=== PATIENT | male | born 1985 | race African-American/Black ===

== ENCOUNTER → 2016-08-22 | Outpatient (CLI) | payer BC | END | disposition home or self-care (01) | LOC: GMAM 12:31 | PROVIDERS: ATTEND Family Medicine | DX: R53.82 Chronic fatigue, unspecified (principal) ==

== ENCOUNTER → 2018-06-15 | Outpatient (CLI) | payer BC | LOC: GMAM 10:49 | PROVIDERS: ATTEND Family Medicine | DX: R53.82 Chronic fatigue, unspecified (principal); E55.9 Vitamin D deficiency, unspecified; E29.9 Testicular dysfunction, unspecified ==

== ENCOUNTER → 2018-07-16 | Outpatient (CLI) | payer BC | LOC: GMAM 12:38 | PROVIDERS: ATTEND Family Medicine | DX: R77.8 Other specified abnormalities of plasma proteins (principal) ==

== ENCOUNTER → 2018-07-26 | Outpatient (CLI) | payer BC | LOC: SL 21:15 | PROVIDERS: ATTEND Family Medicine | DX: G47.10 Hypersomnia, unspecified (principal); R06.83 Snoring; E66.01 Morbid (severe) obesity due to excess calories ==

== ENCOUNTER 2018-08-01 09:46 | Emergency (ER) | payer BC ==
[2018-08-01 09:55] VITALS: BP 153/93; TEMP 98; O2SAT 99
[2018-08-01] MEDS ORDERED: predniSONE 20 MG TAB PO ONE (10:01)
[2018-08-01] MEDS ORDERED: AZITHROMYCIN 250 MG TAB PO ONE (10:01)
--- NOTE | 2018-08-01 10:04 | ED.PDOC ---
History of Present Illness - General Chief Complaint: ENT Problem Time Seen by Provider: 08/01/18 09:57 Source: patient Exam Limitations: no limitations - History of Present Illness Initial Comments: the patient is a 33-year-old Iranian male presenting to emergency room secondary to a productive cough and intermittent fevers for the last week. No real shortness of breath. He has had some malaise. Minimal runny nose. Minimal sore throat. He is not febrile here and he is not hypoxic. Very mild rhonchi but no rales. Normal air movement. No history of any asthma or diabetes. Timing/Duration: 1 week Severity: moderate Improving Factors: nothing Associated Symptoms: denies symptoms, cough Allergies/Adverse Reactions: Allergies NO KNOWN ALLERGY Allergy (Unverified 08/01/12 21:24) Home Medications: Ambulatory Orders Atorvastatin Calcium [Lipitor] 10 mg PO BEDTIME 08/01/18 Azithromycin 500 mg PO DAILY #5 tab 08/01/18 Cholecalciferol [Vitamin D] 1,000 unit PO DAILY 08/01/18 Lisinopril [Prinivil] 10 mg PO DAILY 08/01/18 Multiple Vitamins W/ Minerals [Multi For Him] 1 tab PO DAILY 08/01/18 predniSONE [Prednisone] 20 mg PO DAILY #3 tab 08/01/18 Review of Systems - Review of Systems Constitutional: States: fever, malaise EENTM: States: throat pain - mild Respiratory: States: cough Cardiology: States: no symptoms reported Gastrointestinal/Abdominal: States: no symptoms reported Genitourinary: States: no symptoms reported Musculoskeletal: States: no symptoms reported Skin: States: no symptoms reported Neurological: States: no symptoms reported Endocrine: States: no symptoms reported All other Systems: No Change from Baseline Past Medical History (General) - Patient Medical History Hx Stroke: No Hx Cardiac Disorders: Yes - high cholesterol Hx Congestive Heart Failure: No Hx Hypertension: Yes Hx Diabetes: No Surgical History: no surgical history - Vaccination History Hx Influenza Vaccination: No - 2018 Hx Pneumococcal Vaccination: No - Social History Hx Tobacco Use: No Hx Alcohol Use: No Family Medical History - Family History Father Family History: No Known Living Status: Still Living Physical Exam - Physical Exam General Appearance: Alert, Comfortable, No apparent distress Eye Exam: bilateral normal Ears, Nose, Throat: hearing grossly normal, normal ENT inspection, normal pharynx Neck: full range of motion, supple Respiratory: no respiratory distress, no accessory muscle use, rhonchi - mild Cardiovascular/Chest: normal peripheral pulses, regular rate, rhythm, no edema Peripheral Pulses: radial,right: 2+, radial,left: 2+ Gastrointestinal/Abdominal: non tender, soft, other - orbidly obese Rectal Exam: deferred Back Exam: no CVA tenderness, no vertebral tenderness Extremity: normal range of motion, non-tender, normal inspection, no pedal edema, no calf tenderness, normal capillary refill Neurologic: carrot buncher II-XII nml as tested, alert, normal mood/affect, oriented x 3 Skin Exam: normal color Comments: Vital Signs - 24 hr 08/01/18 09:50 Temperature 98.0 F Pulse Rate [ 100 H Left Radial] Respiratory 22 Rate Blood Pressure 153/93 [Left Arm] O2 Sat by Pulse 99 Oximetry Progress - Progress Progress: 08/01/18 10:04 the patient's 33-year-old -Iranian male presenting to the emergency room with a week's worth of history of a productive cough and intermittent fevers. He appears to have a mild acute bronchitis. While this is possibly viral, he will be covered for potential bacterial pathologies with azithromycin for the next 5 days and some prednisone to help reduce inflammation for the next 3 days. 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 He needs to keep himself well hydrated. ER warnings were given. Keep follow-up with routine primary care doctor. Departure - Departure Clinical Impression: Acute bronchitis Qualifiers: Bronchitis organism: unspecified organism Qualified Code(s): J20.9 - Acute bronchitis, unspecified Disposition: Discharge to Home or Self Care Condition: Fair Departure Forms: ED Discharge - Pt. Copy, Patient Portal Self Enrollment Instructions: Acute Bronchitis, Adult (DC) Diet: regular diet Activity: increase activity as tolerated Referrals: Elias Hopper MD [Primary Care Provider] - 1-2 Weeks Prescriptions: Azithromycin 500 mg PO DAILY #5 tab predniSONE [Prednisone] 20 mg PO DAILY #3 tab Home Medications: Ambulatory Orders Atorvastatin Calcium [Lipitor] 10 mg PO BEDTIME 08/01/18 Azithromycin 500 mg PO DAILY #5 tab 08/01/18 Cholecalciferol [Vitamin D] 1,000 unit PO DAILY 08/01/18 Lisinopril [Prinivil] 10 mg PO DAILY 08/01/18 Multiple Vitamins W/ Minerals [Multi For Him] 1 tab PO DAILY 08/01/18 predniSONE [Prednisone] 20 mg PO DAILY #3 tab 08/01/18 Additional Instructions: the patient's 33-year-old male presenting to the emergency room with a week's worth of history of a productive cough and intermittent fevers. He appears to have a mild acute bronchitis. While this is possibly viral, he will be covered for potential bacterial pathologies with azithromycin for the next 5 days and some prednisone to help reduce inflammation for the next 3 days. 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 He needs to keep himself well hydrated. ER warnings were given. Keep follow-up with routine [facility] doctor.
== END 2018-08-01 10:10 | disposition home or self-care (01) ==
LOC: ER 09:46
DX: J20.9 Acute bronchitis, unspecified (principal); I10 Essential (primary) hypertension; E78.00 Pure hypercholesterolemia, unspecified
CPT/HCPCS: J7512; Q0144

== ENCOUNTER 2019-09-02 14:05 | Emergency (ER) | payer BC ==
[2019-09-02] MEDS ORDERED: diazePAM 2 MG TAB PO ONE (14:28)
--- NOTE | 2019-09-02 15:52 | ED.PDOC ---
History of Present Illness - General Chief Complaint: Blood Pressure Problem Stated Complaint: elevated BP,low temp Time Seen by Provider: 09/02/19 14:07 Source: patient Exam Limitations: no limitations - History of Present Illness Initial Comments: The patient is a 34-year-old -Lao male presents emergency room secondary to high blood pressure and increased heart rate today. He reports that his blood pressures and his heart rates have been better controlled in the last several weeks since restarting his blood pressure regimen. Additionally he is dieting and exercising trying to lose weight. He is also getting set up with his CPAP for his obstructive sleep apnea. The patient is not having any chest pain. He is very anxious however over the blood pressure and the heart rate. Heart rates are in the 1 teens. This has been a problem in the past. No syncope or near syncope. He did see a records management manager several weeks ago in [facility]. He was apparently given a fairly good report. Timing/Duration: 4-6 hours Severity: mild Improving Factors: nothing Worsening Factors: nothing Associated Symptoms: denies symptoms Allergies/Adverse Reactions: Allergies NO KNOWN ALLERGY Allergy (Verified 08/08/19 07:43) Home Medications: Ambulatory Orders Atorvastatin Calcium [Lipitor] 10 mg PO BEDTIME 08/01/18 Azithromycin 500 mg PO DAILY #5 tab 08/01/18 Cholecalciferol [Vitamin D] 1,000 unit PO DAILY 08/01/18 Lisinopril [Prinivil] 10 mg PO DAILY 08/01/18 Multiple Vitamins W/ Minerals [Multi For Him] 1 tab PO DAILY 08/01/18 predniSONE [Prednisone] 20 mg PO DAILY #3 tab 08/01/18 Amlodipine Besylate 10 mg PO DAILY #30 tab 08/05/19 Metoprolol Tartrate 50 mg PO BID #60 tab 08/05/19 Review of Systems - Review of Systems Constitutional: States: no symptoms reported EENTM: States: no symptoms reported Respiratory: States: no symptoms reported Cardiology: States: palpitations Gastrointestinal/Abdominal: States: no symptoms reported Genitourinary: States: no symptoms reported Musculoskeletal: States: no symptoms reported Skin: States: no symptoms reported Neurological: States: anxiety Endocrine: States: no symptoms reported All other Systems: No Change from Baseline Past Medical History (General) - Patient Medical History Hx Stroke: No Hx of COPD: No Hx Cardiac Disorders: No Hx Congestive Heart Failure: No Hx Hypertension: Yes Hx Diabetes: No Hx Cancer: No - Vaccination History Hx Influenza Vaccination: No Hx Pneumococcal Vaccination: No - Social History Hx Tobacco Use: No Hx Alcohol Use: No Hx Substance Use: No Hx Substance Use Treatment: No Hx Depression: No - Female History Patient : No Family Medical History - Family History Father Family History: No Known Living Status: Still Living Physical Exam - Physical Exam General Appearance: Alert, Anxious, No apparent distress Eye Exam: bilateral normal Ears, Nose, Throat: hearing grossly normal, normal ENT inspection Neck: full range of motion, supple Respiratory: lungs clear, normal breath sounds, no respiratory distress, no accessory muscle use Cardiovascular/Chest: normal peripheral pulses, no edema, tachycardia Peripheral Pulses: radial,right: 2+, radial,left: 2+ Gastrointestinal/Abdominal: non tender - Obese, soft Rectal Exam: deferred Back Exam: no CVA tenderness, no vertebral tenderness Extremity: normal range of motion, non-tender, normal inspection, no pedal edema, normal capillary refill Neurologic: certified orthotist practice manager II-XII nml as tested, alert, normal mood/affect - He is very anxious, oriented x 3 Skin Exam: normal color Comments: Vital Signs - 24 hr 09/02/19 09/02/19 09/02/19 14:23 15:23 15:45 Temperature 97.7 F Pulse Rate [ 120 H 117 H 105 H Left Ulnar] Respiratory 20 20 Rate Blood Pressure 173/116 130/99 [Left Arm] O2 Sat by Pulse 96 96 Oximetry Progress - Progress Progress: 09/02/19 15:52 The patient is a 34-year-old -Lao male presented emergency room secondary to an elevated blood pressure and heart rate today. The patient does have very significant anxiety regarding this. He needs to discuss this with his primary care doctor this plan of care for that. Blood pressure did improve significantly simply with a small dose of Valium to treat the anxiety. Sinus tachycardia did persist. He reports that he has been getting better heart rate control in the recent past than today with his medications. It may simply may be that something kept the medications absorbing properly this morning and he has the small spike. For now I am going to recommend the only change be that the patient increase his metoprolol from 50 mg twice daily to 75 mg twice daily. I want him to record his blood pressures twice daily when he is good and relaxed. He is to continue doing his exercise regimen and dieting. He does need to keep follow-up with his records management manager and his primary care doctor. ER warnings are given. [email or web address] [email or web address] [id number] - Results/Orders Results/Orders: 09/02/19 14:29 Telemetry .CONTINUOUS mild sinus tachycardia 09/02/19 14:30 EKG STAT sinus tachycardia 113 bpm normal axis. Borderline R wave progression. No ST segment or T wave changes indicative of acute ischemia. Departure - Departure Clinical Impression: Anxiety, generalized, Sinus tachycardia Disposition: Discharge to Home or Self Care Condition: Fair Departure Forms: ED Discharge - Pt. Copy, Patient Portal Self Enrollment Instructions: DI for High Blood Pressure, Generalized Anxiety Disorder (DC) Diet: bland diet Activity: increase activity as tolerated Referrals: Elias Cruz MD [Primary Care Provider] - 1-5 Days Home Medications: Ambulatory Orders Atorvastatin Calcium [Lipitor] 10 mg PO BEDTIME 08/01/18 Azithromycin 500 mg PO DAILY #5 tab 08/01/18 Cholecalciferol [Vitamin D] 1,000 unit PO DAILY 08/01/18 Lisinopril [Prinivil] 10 mg PO DAILY 08/01/18 Multiple Vitamins W/ Minerals [Multi For Him] 1 tab PO DAILY 08/01/18 predniSONE [Prednisone] 20 mg PO DAILY #3 tab 08/01/18 Amlodipine Besylate 10 mg PO DAILY #30 tab 08/05/19 Metoprolol Tartrate 50 mg PO BID #60 tab 08/05/19 Additional Instructions: The patient is a 34-year-old -Lao male presented emergency room secondary to an elevated blood pressure and heart rate today. The patient does have very significant anxiety regarding this. He needs to discuss this with his primary care doctor this plan of care for that. Blood pressure did improve significantly simply with a small dose of Valium to treat the anxiety. Sinus tachycardia did persist. He reports that he has been getting better heart rate control in the recent past than today with his medications. It may simply may be that something kept the medications absorbing properly this morning and he has the small spike. For now I am going to recommend the only change be that the patient increase his metoprolol from 50 mg twice daily to 75 mg twice daily. I want him to record his blood pressures twice daily when he is good and relaxed. He is to continue doing his exercise regimen and dieting. He does need to keep follow-up with his records management manager and his primary care doctor. ER warnings are given.
[2019-09-02 16:05] VITALS: BP 133/107; TEMP 98.8; O2SAT 97
== END 2019-09-02 16:03 | disposition home or self-care (01) ==
LOC: ER 14:05
DX: F41.9 Anxiety disorder, unspecified (principal); R00.0 Tachycardia, unspecified; I10 Essential (primary) hypertension; Z79.899 Other long term (current) drug therapy

== ENCOUNTER → 2019-10-10 | Outpatient (CLI) | payer BC | LOC: LAB.O 09:24 | PROVIDERS: ATTEND Surgery | DX: R79.89 Other specified abnormal findings of blood chemistry (principal); R94.6 Abnormal results of thyroid function studies; R10.9 Unspecified abdominal pain ==

== ENCOUNTER → 2019-10-11 | Outpatient (CLI) | payer BC | LOC: GMAM 14:23 | PROVIDERS: ATTEND Family Medicine | DX: R94.6 Abnormal results of thyroid function studies (principal); R79.89 Other specified abnormal findings of blood chemistry; R10.9 Unspecified abdominal pain ==

== ENCOUNTER → 2019-10-18 | Outpatient (CLI) | payer BC | LOC: GMAM 10:56 | PROVIDERS: ATTEND Family Medicine | DX: R77.9 Abnormality of plasma protein, unspecified (principal) ==

== ENCOUNTER 2019-11-25 10:42 | Emergency (ER) | payer BC ==
[2019-11-25] MEDS ORDERED: MORPHINE SULFATE INJ 10 MG/ML VIAL IV ONE (11:09)
[2019-11-25] MEDS ORDERED: ONDANSETRON INJ 4 MG/2 ML VIAL IV ONE (11:09)
[2019-11-25] MEDS ORDERED: SODIUM CHLORIDE 0.9% (FLUSH) 10 ML SYG IV PRN (11:09)
[2019-11-25] MEDS ORDERED: SODIUM CHLORIDE 0.9% 1000ML 1,000 ML IVS PRN (11:09)
--- NOTE | 2019-11-25 12:24 | ED.PDOC ---
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 Surgery was performed in [place]. He is presenting today for bilateral upper abdominal pain that radiates to both flanks. Symptoms began 3 days ago. He reports some associated nausea, no vomiting. He states the nausea has prevented him from eating a normal diet, stating he is only been able to get small amounts of liquid. He has not transition to solid foods after the erick edward. He denies any fevers. He states he is having normal bowel movements and passing flatus. He also reports low back pain is been ongoing since August 2019. There was no specific injury at that time. He states the pain radiates down the left leg. He denies any dysuria, incontinence of bowel/bladder, or fever. He talked to his surgeon, Dr. Cazares, who recommended he follow-up with his primary care doctor. Patient states the surgery was completed without complication. Review of Systems - Review of Systems Constitutional: Denies: chills, fever EENTM: Denies: nose congestion, throat pain, mouth pain Respiratory: Denies: cough, orthopnea, short of breath Cardiology: Denies: chest pain, edema Gastrointestinal/Abdominal: States: abdominal pain, nausea. Denies: diarrhea, vomiting Musculoskeletal: States: back pain. Denies: joint pain, joint swelling, muscle stiffness, neck pain Skin: Denies: lesions, rash Neurological: Denies: headache, numbness, paresthesia, tingling, weakness Endocrine: States: no symptoms reported Hematologic/Lymphatic: States: no symptoms reported Past Medical History (General) - Patient Medical History Hx Stroke: No Hx of COPD: No Hx Cardiac Disorders: No Hx Congestive Heart Failure: No Hx Hypertension: Yes Hx Diabetes: No Hx Cancer: No Surgical History: gastric bypass - Vaccination History Hx Influenza Vaccination: No Hx Pneumococcal Vaccination: No - Social History Hx Tobacco Use: No Hx Alcohol Use: No Hx Substance Use: No Hx Substance Use Treatment: No Hx Depression: No - Activities of Daily Living Hospice Agency (if applicable):: None - Female History Patient is a Female of Child Bearing Age (10 -59 yrs old): No Patient : No Family Medical History - Family History Father Family History: No Known Living Status: Still Living Physical Exam - Physical Exam General Appearance: Alert, Comfortable, Obese Eyes, Ears, Nose, Throat Exam: normal ENT inspection, TMs normal Neck: non-tender, full range of motion Respiratory: lungs clear, normal breath sounds, no respiratory distress, no accessory muscle use Cardiovascular/Chest: normal peripheral pulses, regular rate, rhythm, no edema, no gallop, no JVD Peripheral Pulses: No deficit Gastrointestinal/Abdominal: soft, tenderness - Mild bilateral upper quadrants, left greater than right Back Exam: normal inspection, no CVA tenderness, no vertebral tenderness Extremity: normal range of motion, non-tender, normal inspection Neurologic: alert, oriented x 3 Skin Exam: normal color, warm/dry Special Observations: No evidence of discomfort Progress - Progress Progress: 11/25/19 12:50 Rechecked. Pain improving. Discussed lab/CT findings and plan to discuss with his bariatric surgeon, Dr. Cazares. 11/25/19 13:[address] Cazares, bariatric surgery. Reviewed lab/CT findings, vital signs. He has been in contact with the patient over the past week regarding back pain, he felt it was more likely radicular pain from his back. He agrees with plan for discharge, no additional testing/imaging needed at this time. Recommends follow-up with PCP next week. 11/25/19 13:15 Rechecked. Discussed plan for discharge home. Will refill tramadol, add Robaxin. Recommended follow-up with PCP next week for recheck. Strict warnings given to return the emergency room for worsening pain, fever, intractable vomiting, vomiting blood, blood in stool, or any other concerns peer DDX: Small bowel obstruction, postop abscess/seroma/infection, pancreatitis MDM Morbidly obese patient who is 3 weeks status post Ghada-en-Y gastric bypass surgery in [place]. Complaining of bilateral upper abdominal pain and associated nausea. CT abdomen/pelvis with IV contrast shows no acute process. No evidence of gallstones/biliary disease, pancreatitis, or obstruction. He is also complaining of chronic bilateral low back pain rating down the left leg without red flag symptoms for cauda equina/compressive myelopathy, or epidural abscess. Strongly suspect degenerative disc disease versus HNP as the cause of his back pain. He had an MRI performed recently by his PCP as an outpatient, but does not have the results. Recommended follow-up with his PCP next week for MRI results and discuss options for his ongoing back pain based on MRI results. I discussed the case with his bariatric surgeon who agreed with plan for discharge and PCP follow-up. Strict warnings given to return the emergency room for worsening abdominal pain, intractable vomiting, no vomiting blood, blood in stool, weakness/numbness/tingling in the legs, difficulty urinating or urinary incontinence, or any other concerns Florencio Pierson DO [facility] [id number] - Results/Orders Results/Orders: EKG interpreted by me at 10:55 AM. Normal sinus rhythm, rate of 93, normal axis, normal intervals, poor R wave progression, no ST segment elevations or depression 11/25/19 11:09 Sodium Chloride 0.9% (Flush) [Saline Flush Syringe] 10 ml IV PRN PRN Sodium Chloride 0.9% 1000ML [Ns 1000 ml] 1,000 ml IVS .QD 11/25/19 11:10 Hold Metformin x 48Hrs [id number] 11/25/19 11:15 EKG STAT Laboratory Results - last 24 hr 11/25/19 11/25/19 11/25/19 11:10 11:10 11:10 WBC 6.6 RBC 4.30 L Hgb 12.7 L Hct 36.5 L MCV 84.7 MCH 29.5 MCHC 34.8 RDW 15.2 H Plt Count 371 MPV 8.4 Absolute Neuts (auto) 3.00 Absolute Lymphs (auto) 2.50 Absolute Monos (auto) 0.90 H Absolute Eos (auto) 0.10 Absolute Basos (auto) 0.00 Neutrophils % 45.9 Lymphocytes % 38.6 Monocytes % 13.0 H Eosinophils % 2.0 Basophils % 0.5 Sodium 137 Potassium 4.0 Chloride 101 Carbon Dioxide 26 Anion Gap 14.0 BUN 18 Creatinine 1.41 H BUN/Creatinine Ratio 12.8 Random Glucose 95 Serum Osmolality 275.5 Calcium 9.7 Total Bilirubin 0.8 Direct Bilirubin 0.2 Indirect Bilirubin 0.6 AST 24 ALT 30 Alkaline Phosphatase 58 Serum Total Protein 8.6 H Albumin 4.3 Lipase 33 Urine Color Urine Appearance Urine pH Ur Specific [place] Urine Protein Urine Glucose (UA) Urine Ketones Urine Blood Urine Nitrite Urine Bilirubin Urine Urobilinogen Ur Leukocyte Esterase Urine RBC Urine WBC Ur Epithelial Cells Amorphous Sediment Urine Bacteria Hyaline Casts Urine Mucus 11/25/19 12:20 WBC RBC Hgb Hct MCV MCH MCHC RDW Plt Count MPV Absolute Neuts (auto) Absolute Lymphs (auto) Absolute Monos (auto) Absolute Eos (auto) Absolute Basos (auto) Neutrophils % Lymphocytes % Monocytes % Eosinophils % Basophils % Sodium Potassium Chloride Carbon Dioxide Anion Gap BUN Creatinine BUN/Creatinine Ratio Random Glucose Serum Osmolality Calcium Total Bilirubin Direct Bilirubin Indirect Bilirubin AST ALT Alkaline Phosphatase Serum Total Protein Albumin Lipase Urine Color Yellow Urine Appearance Clear Urine pH 5.5 Ur Specific [place] 1.015 Urine Protein Trace Urine Glucose (UA) Negative Urine Ketones 40 H Urine Blood Negative Urine Nitrite Negative Urine Bilirubin Moderate Urine Urobilinogen 0.2 Ur Leukocyte Esterase Negative Urine RBC 0 Urine WBC 0-1 Ur Epithelial Cells 10-20 Amorphous Sediment 2+ Urine Bacteria 1+ Hyaline Casts 0-1 Urine Mucus Moderate EXAM DESCRIPTION: Abdomen/Pelvis w/Contrast CLINICAL HISTORY: 34 years Male, Generalized abdominal pain, s/p Ghada-en-Y 11/02/19 TECHNIQUE: This exam was performed according to our departmental dose- optimization program, which includes automated exposure control, adjustment of the mA and/or kV according to patient size and/or use of iterative reconstruction technique. COMPARISON: None at time of initial interpretation. FINDINGS: Visualized lung bases are grossly unremarkable. Hepatic steatosis. No suspicious hepatic lesion. No biliary dilatation. The bladder is unremarkable. Portal vein is patent. The spleen, pancreas and adrenal glands are unremarkable. Symmetric renal parenchymal enhancement. No hydronephrosis. No urolithiasis. Unremarkable bladder. No evidence of bowel obstruction or focal inflammatory change. No findings to suggest appendicitis. Gastric bypass. No adenopathy. No focal fluid collection. No free air. Normal caliber abdominal aorta. No acute or suspicious osseous abnormality. Scattered degenerative changes present. IMPRESSION: No evidence of acute process in the abdomen or pelvis. Electronically signed by: Waldemar Ling MD 11/25/2019 12:30 PM Departure - Departure Clinical Impression: S/P gastric bypass Abdominal pain Qualifiers: Abdominal location: left upper quadrant Qualified Code(s): R10.12 - Left upper quadrant pain Acute low back pain with left-sided sciatica Qualifiers: Back pain laterality: midline Qualified Code(s): M54.42 - Lumbago with sciatica, left side Disposition: Discharge to Home or Self Care Condition: Good Departure Forms: ED Discharge - Pt. Copy, Patient Portal Self Enrollment Instructions: DI for Abdominal Pain-Adult, Low Back Pain in Adults, Acute Abdomen (Belly Pain), Adult (DC) Diet: resume usual diet Activity: increase activity as tolerated Referrals: Elias Hopper MD [Primary Care Provider] - 1-5 Days Prescriptions: Methocarbamol [Robaxin] 500 - 1,000 mg PO Q6H PRN #30 tab PRN Reason: Muscle Spasms Tramadol HCl 50 - 100 mg PO Q6H PRN #20 tab PRN Reason: Moderate To Severe Pain Ondansetron Odt [Zofran ODT] 4 - 8 mg PO Q6H PRN #15 tab PRN Reason: Nausea Home Medications: Ambulatory Orders Atorvastatin Calcium [Lipitor] 10 mg PO BEDTIME 08/01/18 Azithromycin 500 mg PO DAILY #5 tab 08/01/18 Cholecalciferol [Vitamin D] 1,000 unit PO DAILY 08/01/18 Lisinopril [Prinivil] 10 mg PO DAILY 08/01/18 Multiple Vitamins W/ Minerals [Multi For Him] 1 tab PO DAILY 08/01/18 predniSONE [Prednisone] 20 mg PO DAILY #3 tab 08/01/18 Amlodipine Besylate 10 mg PO DAILY #30 tab 08/05/19 Metoprolol Tartrate 50 mg PO BID #60 tab 08/05/19 Methocarbamol [Robaxin] 500 - 1,000 mg PO Q6H PRN #30 tab 11/25/19 Ondansetron Odt [Zofran ODT] 4 - 8 mg PO Q6H PRN #15 tab 11/25/19 Tramadol HCl 50 - 100 mg PO Q6H PRN #20 tab 11/25/19 Additional Instructions: Follow-up with your primary doctor regarding her MRI results next week. Return to emergency room immediately for worsening pain, intractable vomiting, vomiting blood, blood in stool, fever, or any other concern
--- NOTE | 2019-11-25 12:32 | CT ---
EXAM DESCRIPTION: Abdomen/Pelvis w/Contrast CLINICAL HISTORY: 34 years Male, Generalized abdominal pain, s/p [id number] 11/02/19 TECHNIQUE: This exam was performed according to our departmental dose-optimization program, which includes automated exposure control, adjustment of the mA and/or kV according to patient size and/or use of iterative reconstruction technique. COMPARISON: None at time of initial interpretation. FINDINGS: Visualized lung bases are grossly unremarkable. Hepatic steatosis. No suspicious hepatic lesion. No biliary dilatation. The bladder is unremarkable. Portal vein is patent. The spleen, pancreas and adrenal glands are unremarkable. Symmetric renal parenchymal enhancement. No hydronephrosis. No urolithiasis. Unremarkable bladder. No evidence of bowel obstruction or focal inflammatory change. No findings to suggest appendicitis. Gastric bypass. No adenopathy. No focal fluid collection. No free air. Normal caliber abdominal aorta. No acute or suspicious osseous abnormality. Scattered degenerative changes present. IMPRESSION: No evidence of acute process in the abdomen or pelvis. Electronically signed by: Waldemar Ling MD 11/25/2019 12:30 PM CDT
[2019-11-25 13:37] VITALS: BP 116/79; TEMP 97.3; O2SAT 98
== END 2019-11-25 13:34 | disposition home or self-care (01) ==
LOC: ER 10:42
DX: R10.12 Left upper quadrant pain (principal); R10.11 Right upper quadrant pain; M54.42 Lumbago with sciatica, left side; R11.0 Nausea; I10 Essential (primary) hypertension; Z98.84 Bariatric surgery status; Z79.899 Other long term (current) drug therapy
CPT/HCPCS: 36415; 74177; 80048; 80076; 81001; 83690; 85025; 93005; J2270; J2405; J7030

== ENCOUNTER 2020-03-27 14:58 | Outpatient (CLI) | payer BC | END 2020-04-02 11:10 | disposition home or self-care (01) | LOC: INFRM 14:58 | PROVIDERS: ATTEND Family Medicine | DX: U07.1 COVID-19 (principal); I10 Essential (primary) hypertension; I16.0 Hypertensive urgency; Z23 Encounter for immunization ==